=== PATIENT | male | born 1985 | race Caucasian/White ===

== ENCOUNTER → 2016-10-16 | Outpatient (CLI) | payer BC ==
[2016-10-16 17:01] LABS: BASO % 0.5 % (0.0-1.0); EOS # 0.3 K/mm3 (0.0-0.50); EOS % 3.4 % (0.0-3.0); LARGE UNSTAINED CELL # 0.2 K/mm3 (0.0-0.4); LARGE UNSTAINED CELL % 1.8 % (0.0-4.0); LYMPH # 1.9 K/mm3 (1.5-4.5); LYMPH % 20.5 % (24.0-44.0); MEAN CORPUSCULAR HEMOGLOBIN 27.7 pg (27.0-33.0); MEAN CORPUSCULAR HGB CONC 32.7 g/dl (32.0-36.5); MEAN CORPUSCULAR VOLUME 84.8 fl (80.0-96.0); MONO # 0.6 K/mm3 (0.0-0.8); MONO % 6.4 % (0.0-5.0); NEUTROPHILS # 5.8 K/mm3 (1.8-7.7); NEUTROPHILS % 67.4 % (36.0-66.0); PLATELET COUNT, AUTOMATED 269 k/mm3 (150-450); RED CELL DISTRIBUTION WIDTH 13.9 % (11.5-14.5); WHITE BLOOD COUNT 8.7 K/mm3 (4.0-10.0)
== END ==
LOC: M WUC 13:44
PROVIDERS: ATTEND Physician Assistant
DX: K64.9 Unspecified hemorrhoids (principal)

== ENCOUNTER → 2017-08-06 | Outpatient (CLI) | payer BC ==
[2017-08-06 13:26] LABS: BASO # 0.1 10^3/uL (0.0-0.2); BASO % 0.7 % (0.0-1.0); EOS # 0.7 10^3/uL (0.0-0.50); EOS % 9.8 % (0.0-3.0); HEMATOCRIT 39.8 % (42.0-52.0); HEMOGLOBIN 11.5 g/dl (14.0-18.0); IMMATURE GRANULOCYTE % 0.3 % (0-3.0); LYMPH # 1.7 10^3/uL (1.5-4.5); LYMPH % 22.3 % (24.0-44.0); MEAN CORPUSCULAR HEMOGLOBIN 20.4 pg (27.0-33.0); MEAN CORPUSCULAR HGB CONC 28.9 g/dl (32.0-36.5); MEAN CORPUSCULAR VOLUME 70.4 fl (80.0-96.0); MONO # 1.3 10^3/uL (0.0-0.8); MONO % 16.6 % (0.0-5.0); NEUTROPHILS # 3.8 10^3/uL (1.8-7.7); NEUTROPHILS % 50.3 % (36.0-66.0); PLATELET COUNT, AUTOMATED 352 10^3/uL (150-450); RED BLOOD COUNT 5.65 10^6/uL (4.30-6.10); RED CELL DISTRIBUTION WIDTH 16.4 % (11.5-14.5); WHITE BLOOD COUNT 7.5 10^3/uL (4.0-10.0)
== END ==
LOC: M WUC 10:18
DX: K64.9 Unspecified hemorrhoids (principal)

== ENCOUNTER → 2020-07-23 | Outpatient (CLI) | payer BC ==
--- NOTE | 2020-07-26 13:24 | SLEEPHOME ---
DATE: 07/23/2020 DIAGNOSTIC HOME SLEEP STUDY ORDERED BY: TAD Gonzalez Diagnostic home sleep testing was performed due to concern for the obstructive sleep apnea syndrome in this patient with a history of snoring. For testing, a nocturnal T3 respiratory monitoring device was used. Continuous record was made of pulse, oxygen saturation, air flow, chest and abdominal strain, and body position. 9 hours and 59 minutes of data were reviewed. There were 6 hours and 14 minutes marked as time in bed. During the interval marked time in bed, there were 48 respiratory events identified of 10 seconds in duration or greater for a respiratory event index 7.7. The events were primarily obstructive, but 17 mixed and central apneas were seen. Baseline pulse rate 69. Pulse rate range 57 to 102. Baseline saturation was 92%. Saturations fell to 87%. Testing was performed in both the supine and non-supine positions. IMPRESSION: Abnormal home sleep testing with repetitive respiratory events and oxygen desaturations to 87% with a respiratory event index of 7.7 is consistent with the obstructive sleep apnea syndrome. RECOMMENDATION: The patient should be encouraged to undergo a formal sleep evaluation.
== END ==
LOC: M SLEEP HO 09:48
PROVIDERS: ATTEND Nurse Practitioner Family
DX: R06.83 Snoring (principal)

== ENCOUNTER → 2020-10-16 | Outpatient (CLI) | payer BC ==
--- NOTE | 2020-10-18 17:04 | SLEEPCENT ---
NOCTURNAL POLYSOMNOGRAPHY DATE: 10/16/2020 ORDERED BY: MESHA Guardado Nocturnal polysomnography was performed for the titration of pressure therapy in this patient with a clinical diagnosis of obstructive sleep apnea syndrome, confirmed by home testing revealing a respiratory event index of 7.7. For testing, the patient was fit with a ResMed F30 full face mask of medium size was used, 4 cm of water pressure were applied to the circuit, and the lights were extinguished. 8 hours and 10 minutes of data were reviewed. There were 408.5 minutes of sleep identified. Sleep latency was mildly prolonged at 34 minutes. REM latency was normal at 91 minutes. Sleep architecture was good with four REM cycles. Overall sleep efficiency was 93.5%. The electrocardiogram showed a sinus rhythm with an average heart rate of 70 beats per minute. EEG showed normal waveforms for wake and sleep. Respiratory events were fully palliated with CPAP at a pressure of +6 and remaining measures of sleep physiology were normal. IMPRESSION: Obstructive sleep apnea syndrome (G47.33). RECOMMENDATION: Nightly use of pressure therapy 6 cm of water. TAD Gonzalez
== END ==
LOC: M SLEEP 20:00
PROVIDERS: ATTEND Nurse Practitioner Family
DX: G47.33 Obstructive sleep apnea (adult) (pediatric) (principal)

== ENCOUNTER → 2021-09-15 | Outpatient (CLI) | payer BC ==
[~2021-09-15] MED LIST: LORA-753 PO
== END ==
LOC: M LABSMTC 11:14
PROVIDERS: ATTEND Anesthesiology
DX: Z01.812 Encounter for preprocedural laboratory examination (principal); Z20.822 Contact with and (suspected) exposure to COVID-19

== ENCOUNTER → 2022-06-30 | Outpatient (CLI) | payer BC ==
[~2022-06-30] MED LIST changes: +PERC5TAB12 PO; +PERCOCET PO
== END ==
LOC: M SLEEP 20:00
PROVIDERS: ATTEND Nurse Practitioner Family
DX: G47.30 Sleep apnea, unspecified (principal)

== ENCOUNTER 2024-12-23 06:08 | Day surgery (SDC) | payer BC ==
[~2024-12-23] VITALS: Ht 177.8 cm; Wt 83.1 kg
[~2024-12-23 06:08] MED LIST changes: +OMEP40CA4 PO
[2024-12-23] MEDS ORDERED: LR 1,000 ML IV SCH (06:15)
[2024-12-23] MEDS ORDERED: dexAMETHasone 4 MG/ML 1 ML VIAL As Ordered ONE (07:11)
[2024-12-23] MEDS ORDERED: ONDANSETRON 4MG 2ML VIAL As Ordered ONE (07:11)
[2024-12-23] MEDS ORDERED: ROCURONIUM BROMIDE 50MG/5ML VIAL As Ordered ONE (07:11)
[2024-12-23] MEDS ORDERED: LIDOCAINE 2% 100 MG/5 ML SDV (FOR ANES.) As Ordered ONE (07:11)
[2024-12-23] MEDS ORDERED: KETOROLAC 30 MG/ML 1 ML VIAL As Ordered ONE (07:12)
[2024-12-23] MEDS ORDERED: MIDAZOLAM INJ 2 MG/2 ML VIAL As Ordered ONE (07:15)
[2024-12-23] MEDS: ceFAZolin SOD 2 GM IV ONCE IV ONE (07:29)
[2024-12-23] MEDS ORDERED: ACETAMINOPHEN 1000MG/100ML IV BAG As Ordered ONE (07:43)
[2024-12-23] MEDS ORDERED: SUGAMMADEX SODIUM 200 MG/2 ML VIAL As Ordered ONE (09:10)
[2024-12-23] MEDS ORDERED: HYDROMORPHONE HCL 0.5 MG/0.5 ML SYRINGE IV PRN (09:15)
[2024-12-23 10:30] VITALS: BP 128/75; TEMP 97.2; O2SAT 100
== END 2024-12-23 10:47 | disposition home or self-care (01) ==
LOC: M SDC 06:08
PROVIDERS: ATTEND Surgery
DX: K40.90 Unilateral inguinal hernia, without obstruction or gangrene, not specified as recurrent (principal); Z91.040 Latex allergy status; J30.2 Other seasonal allergic rhinitis
CPT/HCPCS: 49650; C1781; J0131; J0665; J0690; J1100; J1885; J2250; J2405; J3010; S2900